=== PATIENT | female | born 1955 | race Caucasian/White ===

== ENCOUNTER → 2017-01-06 | Outpatient (CLI) | payer OTHER ==
[~2017-01-06] MED LIST: ALBUTEROL0.83 MG/ML INH; ALBUTEROL17 GM INH; ALLER-TEC10 M1 PO; ATIVAN PO; ATORVASTATIN CA40 MG PO; BINOSTO70 MG PO; BRINTELLIX10 MG PO; CALCIUM 600 +1 EAC1 PO; CHEWABLE ASPIRI81 MG PO; DALIRESP500 MCG PO; DILTIAZEM ER120 M3 PO; FISH OIL 1,001000 M1 PO; HYDROCODON-ACE1 EAC5 PO; IPRATR-ALBUTEROL3 ML INH; K-DUR20 ME1 PO; LASIX20 MG PO; LOVENOX; LYRICA75 MG PO; METFORMIN HCL500 M1 PO; OCTAGAM 10% VIA20 ML IV; OMEPRAZOLE20 M1 PO; TIZANIDINE HCL2 M1 PO; UNIPHYLL PO; XARELTO20 MG PO
== END | disposition home or self-care (01) ==
LOC: CSSDAY 09:37
DX: D83.8 Other common variable immunodeficiencies (principal); Z79.899 Other long term (current) drug therapy
CPT/HCPCS: 96365; 96366; J1568; J2550

== ENCOUNTER 2017-01-09 16:19 | Emergency (ER) | payer OTHER ==
--- NOTE | ~2017-01-09 | US85 ---
[facility]. [facility] A Service of [facility] RADIOLOGY TEXT RESULTS PATIENT: RICKY HOOVER LOCATION: SED : 53 UNIT #: [id number] AGE: [address]: Howard Stearns MD SEX: F ORDER DR: [id number] [address] [address] [id number] E MR#: [id number] Acc #: [id number] NAME: RICKY HOOVER : 1955 SEX: F STUDY DATE/TIME: 01/09/2017 16:31 UNIT: SED ROOM: STUDY DESCRIPTION: [facility] [place] [place] [employer] Attending Physician: Howard Stearns M.D. Referring Physician: Howard Stearns M.D. Ordering Physician: Howard Stearns M.D. Primary Care Physician: Harry Carpenter M.D. MEDICAL IMAGING REPORT This report is preliminary unless electronic signature is present. EXAM Left lower extremity venous duplex, 01/09/2017. HISTORY Left leg pain and knee pain for 2 days. History of bilateral superficial venous thrombosis 5 years ago. FINDINGS Ibrahim-scale images of the left lower extremity were obtained as well as Doppler waveform spectral analysis and color-flow Doppler imaging. The examination is abnormal demonstrating occlusive thrombus in the left deep femoral vein. There is normal blood flow and compressibility in the left common femoral vein, as well as the left superficial femoral vein and left popliteal vein and the left calf veins. IMPRESSION Abnormal examination demonstrating occlusive thrombus in the left deep femoral vein. STAT * RESULT Dictated by... Niko Aldridge M.D. THIS IS AN ELECTRONICALLY VERIFIED REPORT Niko Aldridge M.D. at 01/20/2017 10:30 AM YUE/jatinder TD: 01/09/2017 17:07 JOB #: [id number] [facility] A Service of [facility] RADIOLOGY TEXT RESULTS PATIENT: RICKY HOOVER LOCATION: [facility] [place] : 53 UNIT #: [id number] AGE: [address]: Howard Stearns MD SEX: F ORDER DR: MEDICAL IMAGING REPORT Page 1 of 1
[~2017-01-09 16:19] MED LIST changes: -ALBUTEROL17 GM INH; -ALLER-TEC10 M1 PO; -ATIVAN PO; -ATORVASTATIN CA40 MG PO; -BINOSTO70 MG PO; -BRINTELLIX10 MG PO; -CALCIUM 600 +1 EAC1 PO; -CHEWABLE ASPIRI81 MG PO; -DALIRESP500 MCG PO; -DILTIAZEM ER120 M3 PO; -HYDROCODON-ACE1 EAC5 PO; -IPRATR-ALBUTEROL3 ML INH; -K-DUR20 ME1 PO; -LASIX20 MG PO; -LOVENOX; -LYRICA75 MG PO; -METFORMIN HCL500 M1 PO; -OCTAGAM 10% VIA20 ML IV; -OMEPRAZOLE20 M1 PO; -XARELTO20 MG PO
[2017-01-09 16:32] LABS: BASOPHIL# 0.2 X10e3 (0-0.3); BASOPHIL% 1.2 % (0-2.5); EOSINOPHIL# 0.6 X10e3 (0-0.7); EOSINOPHIL% 3.2 % (0.0-7.0); LYMPHOCYTE# 4.2 X10e3 (1.0-3.5); LYMPHOCYTE% 23.6 % (17.0-45.0); MEAN CELL VOLUME 82.4 FL (83-96); MEAN CORPUSCULAR HEMOGLOBIN 26.1 PG (28-34); MEAN CORPUSCULAR HGB CONC 31.6 g/dL (30-36); MEAN PLATELET VOLUME 6.9 FL (6.5-11.5); MONOCYTE# 0.9 X10e3 (0-1.0); MONOCYTE% 4.8 % (3.0-12.0); NEUTROPHIL# 11.9 X10e3 (1.5-7.1); NEUTROPHIL% 67.2 % (40-75); PLATELET COUNT 491 X10e3 (140-420); RED BLOOD COUNT 4.61 X10e (3.90-5.30); RED CELL DISTRIBUTION WIDTH 17.5 % (11.0-15.5); WHITE BLOOD COUNT 17.8 X10e3 (4.0-10.5)
[2017-01-09 16:33] LABS: DIFF IND NO
[2017-01-09 16:49] LABS: INR 1.7; PROTHROMBIN TIME (PATIENT) 18.9 SECONDS (9.5-12.4)
[2017-01-09 16:56] LABS: BLOOD UREA NITROGEN 16 mg/dL (9-23); BUN/CREATININE RATIO 17.77; CALCIUM SERUM 9.3 mg/dL (8.4-10.2); CARBON DIOXIDE 29 mmol/L (22-31); CHLORIDE 98 mmol/L (100-111); CREATININE SERUM 0.9 mg/dL (0.6-1.4); GLOM FILT RATE Estimated ABOVE60 mL/min (>60); GLUCOSE FASTING 207 mg/dL (70-110); SODIUM 135 mmol/L (135-145)
[2017-01-09 16:57] LABS: PARTIAL THROMBOPLASTIN TIME 32.6 SECONDS (25.6-38.1)
[2017-03-05] MEDS ORDERED: LYRICA75 MG PO (10:06)
[2017-05-18] MEDS ORDERED: XARELTO20 MG PO ×2 (08:33→10:09)
[2017-05-18] MEDS ORDERED: CHEWABLE ASPIRI81 MG PO (10:02)
[2017-05-18] MEDS ORDERED: HYDROCODON-ACE1 EAC5 PO (10:03)
[2017-05-18] MEDS ORDERED: BRINTELLIX10 MG PO (10:04)
[2017-05-18] MEDS ORDERED: ATORVASTATIN CA40 MG PO (10:04)
[2017-05-18] MEDS ORDERED: METFORMIN HCL500 M1 PO (10:04)
[2017-05-18] MEDS ORDERED: OMEPRAZOLE20 M1 PO (10:05)
[2017-05-18] MEDS ORDERED: DILTIAZEM ER120 M3 PO (10:05)
[2017-05-18] MEDS ORDERED: LASIX20 MG PO (10:06)
[2017-05-18] MEDS ORDERED: K-DUR20 ME1 PO (10:07)
[2017-05-18] MEDS ORDERED: DALIRESP500 MCG PO (10:07)
[2017-05-18] MEDS ORDERED: ATIVAN PO (10:08)
[2017-05-18] MEDS ORDERED: ALLER-TEC10 M1 PO (10:09)
[2017-05-18] MEDS ORDERED: BINOSTO70 MG PO (10:10)
[2017-05-18] MEDS ORDERED: ALBUTEROL17 GM INH (10:11)
[2017-05-18] MEDS ORDERED: IPRATR-ALBUTEROL3 ML INH (10:11)
[2017-05-18] MEDS ORDERED: CALCIUM 600 +1 EAC1 PO (10:12)
[2017-05-18] MEDS ORDERED: OCTAGAM 10% VIA20 ML IV (10:13)
[2017-05-18] MEDS ORDERED: LOVENOX (17:59)
== END 2017-01-09 18:00 | disposition home or self-care (01) ==
LOC: SED 16:19
PROVIDERS: Emergency Medicine
DX: I82.412 Acute embolism and thrombosis of left femoral vein (principal); E11.9 Type 2 diabetes mellitus without complications; I10 Essential (primary) hypertension; K21.9 Gastro-esophageal reflux disease without esophagitis; J44.9 Chronic obstructive pulmonary disease, unspecified; F17.200 Nicotine dependence, unspecified, uncomplicated; Z90.49 Acquired absence of other specified parts of digestive tract; Z90.710 Acquired absence of both cervix and uterus; Z98.890 Other specified postprocedural states
CPT/HCPCS: 36415; 80048; 85025; 85610; 85730; 93971; 96372; 99284; J1170; J1650

== ENCOUNTER → 2017-02-03 | Outpatient (CLI) | payer OTHER ==
[~2017-02-03] MED LIST changes: +ALBUTEROL17 GM INH; +ALLER-TEC10 M1 PO; +ATIVAN PO; +ATORVASTATIN CA40 MG PO; +BINOSTO70 MG PO; +BRINTELLIX10 MG PO; +CALCIUM 600 +1 EAC1 PO; +CHEWABLE ASPIRI81 MG PO; +DALIRESP500 MCG PO; +DILTIAZEM ER120 M3 PO; +HYDROCODON-ACE1 EAC5 PO; +IPRATR-ALBUTEROL3 ML INH; +K-DUR20 ME1 PO; +LASIX20 MG PO; +LOVENOX; +LYRICA75 MG PO; +METFORMIN HCL500 M1 PO; +OCTAGAM 10% VIA20 ML IV; +OMEPRAZOLE20 M1 PO; +XARELTO20 MG PO
== END | disposition home or self-care (01) ==
LOC: CSSDAY 08:17
DX: D83.8 Other common variable immunodeficiencies (principal); Z79.899 Other long term (current) drug therapy
CPT/HCPCS: 96365; 96366; J1568; J2550

== ENCOUNTER → 2017-03-17 | Outpatient (CLI) | payer OTHER | END | disposition home or self-care (01) | LOC: CSSDAY 03-03 08:00 | DX: D83.8 Other common variable immunodeficiencies (principal); Z79.899 Other long term (current) drug therapy | CPT/HCPCS: 96365; 96366; J1568; J2550 ==

== ENCOUNTER 2017-04-18 13:07 | Emergency (ER) | payer OTHER ==
--- NOTE | ~2017-04-18 | CT71 ---
[facility] A Service of [facility] RADIOLOGY TEXT RESULTS PATIENT: RICKY HOOVER LOCATION: [facility] : 53 UNIT #: [id number] AGE: [address]: SPENSER BURKS SEX: F ORDER DR: [id number] [facility] [address] [place], [place] [address] [id number] E MR#: [id number] Acc #: [id number] NAME: RICKY HOOVER : 1955 SEX: F STUDY DATE/TIME: 04/18/2017 16:27 UNIT: [facility] ROOM: STUDY DESCRIPTION: CT Head Wo Contrast Attending Physician: Spenser Burks A.P.R.N. Ordering Physician: Spenser Burks A.P.R.N. Primary Care Physician: Harry Estrada M.D. MEDICAL IMAGING REPORT This report is preliminary unless electronic signature is present EXAM CT head without contrast; 04/18/2017. HISTORY 61-year-old female with right-sided head pain, status post fall today. COMPARISON None. TECHNIQUE Routine unenhanced axial images performed through the brain. This CT exam was performed with one or more of the following radiation dose reduction techniques: automatic exposure control, adjustment of mA and/or kV according to patient size, and iterative reconstruction. FINDINGS No hemorrhage, acute infarction, mass lesion, or abnormal extraaxial fluid collection. No midline shift or focal mass effect. Ventricular system is normal in size and configuration. No acute bony abnormality. Visualized paranasal sinuses are clear. Partial fluid opacification left mastoid air cells. IMPRESSION 1. No acute intracranial abnormality. 2. Partial fluid opacification left-sided mastoid air cells. Dictated by... Spenser Márquez M.D. THIS IS AN ELECTRONICALLY VERIFIED REPORT Spenser Márquez M.D. at 04/19/2017 6:13 PM JKB/[facility] A Service of [facility] RADIOLOGY TEXT RESULTS PATIENT: RICKY HOOVER LOCATION: [facility] : 53 UNIT #: [id number] AGE: [address]: SPENSER BURKS SEX: F ORDER DR: TD: 04/18/2017 19:56 JOB #: [id number] MEDICAL IMAGING REPORT Page 1 of 1 COPY
--- NOTE | ~2017-04-18 | CR63 ---
[facility] A Service of [facility] RADIOLOGY TEXT RESULTS PATIENT: RICKY HOOVER LOCATION: [facility] : 53 UNIT #: [id number] AGE: [address]: SPENSER BURKS SEX: F ORDER DR: [id number] [facility] [address] [place], [place] [address] [id number] E MR#: [id number] Acc #: [id number] NAME: RICKY HOOVER : 1955 SEX: F STUDY DATE/TIME: 04/18/2017 14:55 UNIT: [facility] ROOM: STUDY DESCRIPTION: CR Chest 2 View Attending Physician: Spenser Burks A.P.R.N. Ordering Physician: Spenser Burks A.P.R.N. Primary Care Physician: Harry Estrada M.D. MEDICAL IMAGING REPORT This report is preliminary unless electronic signature is present EXAM Two-view chest. HISTORY Shortness of air, rib pain. Fell today. FINDINGS Two views of the chest demonstrates moderate lung volumes satisfactory technique. Mild cardiomegaly without failure. Mediastinum/great vessels unremarkable. The osseous structures unremarkable for age. IMPRESSION Cardiomegaly. No acute disease. Dictated by... Lorelei Chester M.D. THIS IS AN ELECTRONICALLY VERIFIED REPORT Lorelei Chester M.D. at 04/18/2017 9:09 PM Saumya TD: 04/18/2017 17:36 JOB #: [id number] MEDICAL IMAGING REPORT Page 1 of 1 COPY
--- NOTE | ~2017-04-18 | CR181 ---
[facility] A Service of [facility] RADIOLOGY TEXT RESULTS PATIENT: RICKY HOOVER LOCATION: [facility] : 53 UNIT #: [id number] AGE: [address]: SPENSER BUKRS SEX: F ORDER DR: [id number] [facility] [address] [place], [place] [address] [id number] E MR#: [id number] Acc #: [id number] NAME: RICKY HOOVER. : 1955 SEX: F STUDY DATE/TIME: 04/18/2017 14:55 UNIT: [facility] ROOM: STUDY DESCRIPTION: CR Lumbar Spine 2 or 3 Views Attending Physician: Spenser Burks A.P.R.N. Ordering Physician: Spenser Burks A.P.R.N. Primary Care Physician: Harry Estrada M.D. MEDICAL IMAGING REPORT This report is preliminary unless electronic signature is present EXAM Lumbar spine, 3 views. HISTORY Fell today, complains of low back pain. History of lymphoma. FINDINGS Three views of the lumbar spine demonstrates mild levoscoliosis lumbar spine. No acute fracture or malalignment. Disc spaces maintained. Arterial vascular calcifications. No evidence of aneurysm. Moderate lower lumbar spine facet arthropathy. IMPRESSION Lower lumbar spine facet arthropathy L4-5, L5-S1. No acute findings. Dictated by... Lorelei Chester M.D. THIS IS AN ELECTRONICALLY VERIFIED REPORT Lorelei Chester M.D. at 04/18/2017 9:09 PM Saumya TD: 04/18/2017 17:38 JOB #: [id number] MEDICAL IMAGING REPORT Page 1 of 1 COPY
--- NOTE | ~2017-04-18 | CT52 ---
[facility] A Service of [facility] RADIOLOGY TEXT RESULTS PATIENT: RICKY HOOVER LOCATION: [facility] : 53 UNIT #: [id number] AGE: [address]: SPENSER BURKS SEX: F ORDER DR: [id number] [facility] [address] [place], [place] [address] [id number] E MR#: [id number] Acc #: [id number] NAME: RICKY HOOVER : 1955 SEX: F STUDY DATE/TIME: 04/18/2017 16:32 UNIT: [facility] ROOM: STUDY DESCRIPTION: CT Cervical Spine Wo Cont Attending Physician: Spenser Burks A.P.R.N. Ordering Physician: Spenser Burks A.P.R.N. Primary Care Physician: Harry Estrada M.D. MEDICAL IMAGING REPORT This report is preliminary unless electronic signature is present EXAM CT cervical spine without contrast; 04/18/2017. HISTORY 61-year-old female with neck pain, status post fall today. COMPARISON None. TECHNIQUE Helical scan performed through the cervical spine without IV contrast. Coronal and sagittal reformatted images. This CT exam was performed with one or more of the following radiation dose reduction techniques: automatic exposure control, adjustment of mA and/or kV according to patient size, and iterative reconstruction. FINDINGS No evidence of acute fracture or subluxation. Paravertebral body heights and alignment are normally maintained. Prevertebral soft tissues are normal. Atlantoaxial relationship is normal. Cervicothoracic junction is unremarkable. No bony canal stenosis. Disc spaces and facets appear within expected limits. Paravertebral soft tissues are unremarkable. Scanning through the lung apices demonstrates emphysema. IMPRESSION 1. No acute cervical spine injury. 2. Emphysema in the visualized lung apices. Dictated by... Spenser Márquez M.D. THIS IS AN ELECTRONICALLY VERIFIED REPORT Spenser Márquez M.D. at 04/19/2017 6:13 PM [facility] A Service of [facility] RADIOLOGY TEXT RESULTS PATIENT: RICKY HOOVER [id number] 53 UNIT #: [id number] AGE: [address]: SPENSER BURKS SEX: F ORDER DR: Johnnie TD: 04/18/2017 20:45 JOB #: [id number] MEDICAL IMAGING REPORT Page 1 of 1 COPY
[~2017-04-18 13:07] MED LIST changes: -ALBUTEROL17 GM INH; -ALLER-TEC10 M1 PO; -ATIVAN PO; -ATORVASTATIN CA40 MG PO; -BINOSTO70 MG PO; -BRINTELLIX10 MG PO; -CALCIUM 600 +1 EAC1 PO; -CHEWABLE ASPIRI81 MG PO; -DALIRESP500 MCG PO; -DILTIAZEM ER120 M3 PO; -HYDROCODON-ACE1 EAC5 PO; -IPRATR-ALBUTEROL3 ML INH; -K-DUR20 ME1 PO; -LASIX20 MG PO; -LOVENOX; -METFORMIN HCL500 M1 PO; -OCTAGAM 10% VIA20 ML IV; -OMEPRAZOLE20 M1 PO; -XARELTO20 MG PO
[2017-05-18] MEDS ORDERED: XARELTO20 MG PO ×2 (08:33→10:09)
[2017-05-18] MEDS ORDERED: CHEWABLE ASPIRI81 MG PO (10:02)
[2017-05-18] MEDS ORDERED: HYDROCODON-ACE1 EAC5 PO (10:03)
[2017-05-18] MEDS ORDERED: METFORMIN HCL500 M1 PO (10:04)
[2017-05-18] MEDS ORDERED: BRINTELLIX10 MG PO (10:04)
[2017-05-18] MEDS ORDERED: ATORVASTATIN CA40 MG PO (10:04)
[2017-05-18] MEDS ORDERED: DILTIAZEM ER120 M3 PO (10:05)
[2017-05-18] MEDS ORDERED: OMEPRAZOLE20 M1 PO (10:05)
[2017-05-18] MEDS ORDERED: LASIX20 MG PO (10:06)
[2017-05-18] MEDS ORDERED: K-DUR20 ME1 PO (10:07)
[2017-05-18] MEDS ORDERED: DALIRESP500 MCG PO (10:07)
[2017-05-18] MEDS ORDERED: ATIVAN PO (10:08)
[2017-05-18] MEDS ORDERED: ALLER-TEC10 M1 PO (10:09)
[2017-05-18] MEDS ORDERED: BINOSTO70 MG PO (10:10)
[2017-05-18] MEDS ORDERED: IPRATR-ALBUTEROL3 ML INH (10:11)
[2017-05-18] MEDS ORDERED: ALBUTEROL17 GM INH (10:11)
[2017-05-18] MEDS ORDERED: CALCIUM 600 +1 EAC1 PO (10:12)
[2017-05-18] MEDS ORDERED: OCTAGAM 10% VIA20 ML IV (10:13)
[2017-05-18] MEDS ORDERED: LOVENOX (17:59)
== END 2017-04-18 18:00 | disposition home or self-care (01) ==
LOC: CED 13:07
DX: S09.90XA Unspecified injury of head, initial encounter (principal); S39.012A Strain of muscle, fascia and tendon of lower back, initial encounter; J44.9 Chronic obstructive pulmonary disease, unspecified; K21.9 Gastro-esophageal reflux disease without esophagitis; E11.9 Type 2 diabetes mellitus without complications; F17.210 Nicotine dependence, cigarettes, uncomplicated; W18.09XA Striking against other object with subsequent fall, initial encounter; Z88.5 Allergy status to narcotic agent; Z88.8 Allergy status to other drugs, medicaments and biological substances; Z88.0 Allergy status to penicillin; Z79.899 Other long term (current) drug therapy; Z79.84 Long term (current) use of oral hypoglycemic drugs; Z86.718 Personal history of other venous thrombosis and embolism; Z90.710 Acquired absence of both cervix and uterus; Z98.890 Other specified postprocedural states; Z85.72 Personal history of non-Hodgkin lymphomas
CPT/HCPCS: 70450; 71020; 72100; 72125; 94010; 99284

== ENCOUNTER → 2017-05-18 | Outpatient (CLI) | payer OTHER ==
[~2017-05-18] MED LIST changes: +ALBUTEROL17 GM INH; +ALLER-TEC10 M1 PO; +ATIVAN PO; +ATORVASTATIN CA40 MG PO; +BINOSTO70 MG PO; +BRINTELLIX10 MG PO; +CALCIUM 600 +1 EAC1 PO; +CHEWABLE ASPIRI81 MG PO; +DALIRESP500 MCG PO; +DILTIAZEM ER120 M3 PO; +HYDROCODON-ACE1 EAC5 PO; +IPRATR-ALBUTEROL3 ML INH; +K-DUR20 ME1 PO; +LASIX20 MG PO; +LOVENOX; +METFORMIN HCL500 M1 PO; +OCTAGAM 10% VIA20 ML IV; +OMEPRAZOLE20 M1 PO; +XARELTO20 MG PO
== END | disposition home or self-care (01) ==
LOC: CSSDAY 09:54
DX: D83.8 Other common variable immunodeficiencies (principal); Z79.899 Other long term (current) drug therapy
CPT/HCPCS: 96365; 96366; J1568; J2550